=== PATIENT | female | born 2000 | race African-American/Black ===

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

== ENCOUNTER 2022-03-08 10:55 | Outpatient (CLI) | payer OTHER, SELFPAY ==
[2022-03-08 12:00] LABS: Strep Group A RT-PCR NOT DETECTED (Negative)
[2022-03-08 12:12] LABS: Influenza A QL RT-PCR Negative (Negative); Influenza B QL RT-PCR Negative (Negative)
== END 2022-03-08 10:56 | disposition home or self-care (01) ==
LOC: ANHLAB 10:57
PROVIDERS: PCP Internal Medicine; Visit Provider Internal Medicine
DX: J02.9 Acute pharyngitis, unspecified (principal)
CPT/HCPCS: 87502; 87651